=== PATIENT | male | born 1960 | race Caucasian/White ===

== ENCOUNTER 2019-09-29 21:23 | Emergency (ER) | payer OTHER, SELFPAY ==
[2019-09-29 21:23] VITALS: BP 141/71; PULSE 79; RESP 18; TEMP 36.8; O2SAT 99; BMI 32.8
--- NOTE | 2019-09-29 21:45 | RAD_ITS ---
STUDY: X-RAY - LEFT HAND REASON FOR EXAM: Male, 59 years old. Trauma TECHNIQUE: 3 view(s) of the hand. COMPARISON: None. FINDINGS: Normal radiocarpal articulation. Normal distal radioulnar joint. Question old unfused ulnar styloid fracture Normal visualized carpal bones. Normal carpal articulations Normal carpometacarpal articulation of the thumb. Normal second through fifth carpometacarpal joints. Normal metacarpi. Normal metacarpophalangeal joint of the thumb. Normal interphalangeal joint of the thumb. Normal proximal and distal phalanges of the thumb. Normal metacarpophalangeal joints of the second through fifth fingers. Normal proximal and distal interphalangeal joints of the second through fifth fingers. Normal phalanges of the second through fifth fingers. The soft tissue structures are unremarkable. RAD/Hand Min 3 Views IMPRESSION: No acute fracture or dislocation. Electronically Signed: Clayton Sherman MD at 22:01 EST , Service support ,
--- NOTE | 2019-09-29 22:52 | ED.VIS.UPPEX ---
History of Present Illness Chief Complaint: Upper Extremity Injury Narrative: Patient presented secondary to left hand pain. Patient states that about a week ago he struck his left hand with a hammer. He had a mild amount of pain at that point and suffered a laceration over the palmar surface of his hand. 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 Patient states that the pain is moderate worse with palpation is associated with swelling. No numbness or weakness. No constitutional symptoms such as fever. Patient is not immunosuppressed. Review of systems otherwise negative. Past Medical History - Allergies and Home Meds Allergies/Adverse Reactions: Allergies No Known Allergies Allergy (Verified 08/19/16 20:18) Primary Care Physician: Benji Ojeda MD [Primary Care Provider] - 1 Week Smoking Status: Never smoker Review of Systems General: Denies: Fever Musculoskeletal: Reports: Extremity Pain Skin: Reports: Wounds Physical Exam Vital Signs/Narrative: Vital Signs Temp Pulse Resp BP Pulse Ox 09/29/19 21:23 98.3 F 79 18 141/71 H 99 Inital Vital Signs reviewed: Yes Left Hand: - - Examination patient's left hand shows a superficial abrasion over the patient's palmar surface of his index finger metacarpal. There is swelling of the index finger, but not fusiform swelling. Patient is able to extend the finger. No pain along the flexor sheath. Minimal tenderness to palpation of the finger and hand. General: Well nourished Head: Normocephalic ENT: No Trauma Neck: Full ROM Cardiovascular: Regular rate, Regular rhythm Respiratory: No distress Skin: Normal color, No rash Neurological: Alert Diagnostic/Tx/Re-eval - Medical Decision Making Patient presented secondary to hand pain. Radiographs by my personal review as well as radiology are found to be negative for acute process. I did consider the possibility of flexor tenosynovitis in this patient, but he does not have symptoms that would be consistent with this such as pain along the flexor sheath, pain with passive extension, or fusiform swelling of the digit. Potentially the patient has an element of early cellulitis. Patient be treated with a course of doxycycline. He was recommended signs and symptoms which to return. ED Disposition - Plan for ED Patient: Disposition: Home or Assisted Living Diagnosis: Infection of left hand Instructions: Cellulitis Prescriptions: Doxycycline 100 mg PO BID #20 cap Prescription Printed Referrals: Benji jOeda MD [Primary Care Provider] - 1 Week
[2019-09-29] MEDS: Doxycycline 100 MG CAPSULE PO (23:01)
[2019-09-29 23:02] VITALS: PULSE 85; RESP 16; O2SAT 98
== END 2019-09-29 23:02 | disposition home or self-care (01) ==
PROVIDERS: Emergency Provider Emergency Medicine; Family Provider Family Medicine; PCP Family Medicine
DX: L08.9 Local infection of the skin and subcutaneous tissue, unspecified (principal)
CPT/HCPCS: 73130; 99283